=== PATIENT | male | born 1955 | race Caucasian/White ===

== ENCOUNTER 2016-07-24 14:31 | Inpatient (IN) ==
[2016-07-24 15:25] VITALS: BMI 23.3
[2016-07-24] MEDS ORDERED: MORPHINE 2 MG/ML SYRINGE IVP PRN (16:09)
[2016-07-24] MEDS ORDERED: ZOFRAN 4 MG/2 ML IVP PRN (16:11)
[2016-07-24 16:23] LABS: BASOPHILS % (AUTO) 0.2 % (0.0-3.0); EOSINOPHILS # (AUTO) 0.2 K/ul (0.0-0.7); EOSINOPHILS % (AUTO) 1.3 % (0.0-7.0); HEMATOCRIT 43.6 % (42.0-52.0); IMMATURE GRANULOCYTE % (AUTO) 0.3 % (0.0-5.0); LYMPHOCYTES % (AUTO) 15.6 (10.0-50.0); MEAN CORPUSCULAR HEMOGLOBIN 31.6 pg (27.0-31.0); MEAN CORPUSCULAR HGB CONC 34.4 (31.8-35.4); MONOCYTES # (AUTO) 1.2 K/uL (0.4-2.0); MONOCYTES % (AUTO) 9.2 (0-10); NEUTROPHILS # (AUTO) 9.2 K/ul (2.0-6.9); NEUTROPHILS % (AUTO) 73.4; PLATELET COUNT 242 10^3/uL (140-440); RED BLOOD COUNT 4.74 10^6/ul (4.70-6.10); WHITE BLOOD COUNT 12.54 K/ul (4.2-10.2)
[2016-07-24] MEDS ORDERED: LEVAQUIN 500 MG in PREMIX 100 ML D5W 1 BAG IV SCH (16:30)
[2016-07-24 16:38] LABS: BILIRUBIN,URINE Negative (NEGATIVE); KETONES,URINE Negative (NEGATIVE); LEUKOCYTE ESTERASE ,URINE Negative (NEGATIVE); NITRITE,URINE Negative (NEGATIVE); PH,URINE 5.5 (5-9); PROTEIN,URINE Negative (NEGATIVE); URINE, BLOOD 2+ (NEGATIVE)
[2016-07-24 16:40] LABS: ADD URINE MICROSCOPIC YES
[2016-07-24 16:45] LABS: ALBUMIN 3.3 g/dL (3.4-5.0); ALBUMIN/GLOBULIN RATIO 0.89; ANION GAP 14.1; BILIRUBIN,TOTAL 0.29 mg/dL (0.00-1.20); BUN/CREATININE RATIO 13.33; CALCIUM 8.8 mg/dL (8.2-10.2); CREATININE 1.05 mg/dL (0.60-1.10); POTASSIUM 4.1 mmol/L (3.5-5.1)
--- NOTE | 2016-07-24 16:50 | CT ---
EXAM: CT abdomen pelvis without contrast HISTORY: Lower abdominal pain for 4 days COMPARISON: None TECHNIQUE: Serial axial images of the abdomen pelvis were performed from the lung bases through the inferior pelvis without contrast. These were viewed in multiple planes. FINDINGS: The lung bases are clear. Evaluation is limited due to lack of contrast. The liver is unremarkable. The gallbladder is contr acted. The adrenal glands demonstrate a 2.5 x 3.2 cm low attenuation lesion in the left adrenal gla nd with Hounsfield units of negative five consistent with an adenoma. The right kidney and left kid mayur are unremarkable without hydronephrosis, hydroureter or stone. The spleen is unremarkable. The pancreas is normal. The stomach is normal. Small bowel in the abdomen pelvis is normal. The colon demonstrates thickening and inflammatory str anding of the sigmoid colon with multiple scattered diverticuli. There is no focal fluid collection or free air identified. The appendix is normal. Urinary bladder is partially distended. The pros gilliland demonstrates central calcifications. The osseous structures demonstrate multilevel degenerativ e disease of the spine with mild rightward curvature of the lumbar spine. IMPRESSION: 1. Sigmoid diverticulitis with no evidence of abscess or free air. 2. Left adrenal adenoma with measurements of 2.5 x 3.2 cm. 3. Degenerative disease of the spine with mild rightward curvature.
[2016-07-24] MEDS: D5%-NS-KCL 20 MEQ/L IV SOL 1,000 ML IV SCH (17:08)
[2016-07-24] MEDS: FLAGYL 500 MG/100 ML 500 MG in PREMIX 100 ML NS 1 BAG IV SCH ×2 (17:08→22:25)
[2016-07-24] MEDS: PRAVACHOL PO SCH (22:25)
[2016-07-24] MEDS: ZOSYN 3.375 GM 3.375 GM in SODIUM CHLORIDE 100 ML IV SCH (23:29)
[2016-07-25] MEDS: D5%-NS-KCL 20 MEQ/L IV SOL 1,000 ML IV SCH ×2 (05:12→19:13)
[2016-07-25] MEDS: FLAGYL 500 MG/100 ML 500 MG in PREMIX 100 ML NS 1 BAG IV SCH ×3 (05:14→21:05)
[2016-07-25] MEDS: ZOSYN 3.375 GM 3.375 GM in SODIUM CHLORIDE 100 ML IV SCH ×4 (06:26→23:25)
[2016-07-25 07:33] LABS: BASOPHILS % (AUTO) 0.3 % (0.0-3.0); EOSINOPHILS # (AUTO) 0.2 K/ul (0.0-0.7); EOSINOPHILS % (AUTO) 1.8 % (0.0-7.0); HEMATOCRIT 39.8 % (42.0-52.0); HEMOGLOBIN 13.8 g/dl (14.0-18.0); IMMATURE GRANULOCYTE % (AUTO) 0.3 % (0.0-5.0); LYMPHOCYTES % (AUTO) 20.1 (10.0-50.0); MEAN CORPUSCULAR HEMOGLOBIN 31.9 pg (27.0-31.0); MEAN CORPUSCULAR HGB CONC 34.7 (31.8-35.4); MEAN CORPUSCULAR VOLUME 92.1 fl (80.0-94.0); MONOCYTES # (AUTO) 1.1 K/uL (0.4-2.0); MONOCYTES % (AUTO) 11.3 (0-10); NEUTROPHILS # (AUTO) 6.5 K/ul (2.0-6.9); NEUTROPHILS % (AUTO) 66.2; PLATELET COUNT 202 10^3/uL (140-440); RED BLOOD COUNT 4.32 10^6/ul (4.70-6.10); WHITE BLOOD COUNT 9.87 K/ul (4.2-10.2)
[2016-07-25 07:58] LABS: ALBUMIN 2.8 g/dL (3.4-5.0); ALBUMIN/GLOBULIN RATIO 0.85; ANION GAP 10.8; BILIRUBIN,TOTAL 0.74 mg/dL (0.00-1.20); CALCIUM 8.4 mg/dL (8.2-10.2); CREATININE 0.8 mg/dL (0.60-1.10); POTASSIUM 3.8 mmol/L (3.5-5.1); TOTAL PROTEIN 6.1 g/dL (5.8-8.1)
[2016-07-25] MEDS ORDERED: ASPIRIN EC PO SCH ×2 (08:00→21:00)
[2016-07-25] MEDS ORDERED: TOPROL XL PO SCH ×2 (09:00→21:00)
[2016-07-25] MEDS ORDERED: PRASUGREL HCL 5 MG PO SCH ×2 (09:00→21:00)
[2016-07-25] MEDS: SODIUM CHLORIDE 1,000 ML IV SCH (18:57)
[2016-07-25] MEDS: PRAVACHOL PO SCH (21:04)
[2016-07-26] MEDS: FLAGYL 500 MG/100 ML 500 MG in PREMIX 100 ML NS 1 BAG IV SCH ×2 (04:23→13:35)
[2016-07-26] MEDS: ZOSYN 3.375 GM 3.375 GM in SODIUM CHLORIDE 100 ML IV SCH ×3 (05:53→17:51)
[2016-07-26 18:17] VITALS: BP 142/86; TEMP 97.8
[2016-07-26] MEDS ORDERED: PNEUMOVAX 23 ONE (18:45)
[2016-07-26] MEDS ORDERED: FLUARIX QUAD 2016-2017 SYRINGE IM ONE (18:45)
[2016-07-26] MEDS: SODIUM CHLORIDE 1,000 ML IV SCH (19:13)
--- NOTE | 2016-08-27 12:42 | SSS ---
DATE OF SERVICE: 07/24/16 - ADMITTED 07/26/16 DISCHARGED PRINCIPAL DIAGNOSIS: 1. ACUTE DIVERTICULITIS 2. HYPERTENSION 3. HYPERLIPIDEMIA 4. CORONARY ARTERY DISEASE DISCUSSION: This is a 60-year-old male who presented to my office for evaluation of lower abdominal pain. For several days he has had lower abdominal discomfort associated with loose stool. There had been no blood in the stool. He states his colonoscopy has been up to date and he presents for further evaluation. PAST MEDICAL HISTORY: MEDICATIONS: 1. 81 mg aspirin 2. Pravachol 3. Effient 4. Toprol ALLERGIES: NKDA PAST MEDICAL HISTORY: Includes history of coronary artery disease; history of hyperlipidemia; hypertension. PAST SURGICAL HISTORY: Unremarkable. SOCIAL HISTORY: He is . He is a previous smoker. Uses alcohol socially. No ilicit drug use is noted. FAMILY HISTORY: Reviewed and thought not to be pertinent to discussion. REVIEW OF SYSTEMS: No headaches, visual changes, tinnitus, chest pain, shortness of breath, hemoptysis. Denies any blood in the stool, had lower abdominal cramping. No urinary symptoms or seizures. PHYSICAL EXAMINATION: VITAL SIGNS: Temperature 100, pulse 80, respirations 18 and blood pressure 134/ 68. HEENT: Pupils are round. NECK: Supple. CHEST: Clear. CARDIOVASCULAR: Regular rate and rhythm. ABDOMEN: Soft. There is no tenderness in right lower quadrant. No rebound, no guarding. EXTREMITIES: Distal extremities without cyanosis or edema. LABS AND STUDIES: Laboratory revealed a white count of 12,000, chemistries unremarkable. Urinalysis found to be clear. CT scan did reveal evidence of acute diverticulitis. CLINICAL COURSE: The patient was admitted, started on IV fluids, antibiotics. Gradually his pain seemed to improve. We advanced his diet. At time of discharge, he was tolerating regular diet without fever, chills, nausea and vomiting. At this point we thought he was stable for discharge. He was discharged with antibiotics, Cipro and Flagyl. We are going to arrange followup with his GI doctor, Dr. Diaz for outpatient colonoscopy. Please see orders. MTDD
== END 2016-07-26 18:35 | disposition home or self-care (01) | DRG 392 ==
LOC: MEDSURG A 14:31
PROVIDERS: ADMIT Family Medicine; ATTEND Family Medicine
DX: K57.32 Diverticulitis of large intestine without perforation or abscess without bleeding (principal); I10 Essential (primary) hypertension; E78.5 Hyperlipidemia, unspecified; I25.10 Atherosclerotic heart disease of native coronary artery without angina pectoris; Z87.891 Personal history of nicotine dependence; Z79.899 Other long term (current) drug therapy
CPT/HCPCS: 36415; 80053; 81001; 82150; 83690; 85025

== ENCOUNTER 2016-10-13 06:31 | Day surgery (SDC) ==
[2016-10-13] MEDS ORDERED: LIDOCAINE 1% 20 ML MDV ID ONE (07:09)
[2016-10-13] MEDS ORDERED: LIDOCAINE 1% 20 ML MDV ONE (07:09)
[2016-10-13] MEDS ORDERED: VERSED ONE (08:25)
[2016-10-13] MEDS ORDERED: DIPRIVAN 20 ML VIAL IVP ONE (08:25)
[2016-10-13 09:25] VITALS: BP 131/80; TEMP 97.6
--- NOTE | 2016-10-13 14:45 | OP ---
INDICATIONS FOR PROCEDURE: 60-year-old gentleman presents for colonoscopy exam. He has a family history of colon cancer involving his mother. He also had an episode of diverticulitis this past July and that has resolved. MEDICATIONS: SEE ANESTHESIA NOTES. PROCEDURE: COLONOSCOPY, SNARE POLYPECTOMY. REPORT: The risks, benefits, alternatives and limitations were discussed in detail with the patient. Informed consent was obtained. After adequate sedation was achieved, a digital rectal exam revealed good tone, no masses. The colonoscope was introduced into the rectum and advanced under direct visual guidance to the cecum. The cecum was identified by the appendiceal orifice and IC valve. I then slowly withdrew the scope in a circumferential manner examining the mucosa quite carefully. I was able to retroflex the scope in the right colon and left colon to increase visualization. The colonic mucosa was unremarkable except for mild amount of small mouth diverticula scattered throughout the sigmoid colon. In the rectum, there is a raised 6 mm polyp that I removed by snare technique. No other abnormalities were noted including on retroflex view of the anal canal. The prep was good. The withdrawal time was 7 minutes and 6 seconds. The patient tolerated the procedure well with stable vital signs and pulse oximetry throughout. IMPRESSION: 1. DIVERTICULOSIS. 2. RECTAL POLYP REMOVED. RECOMMENDATIONS: 1. High fiber diet. 2. Office visit as needed. 3. Await pathology results. If everything is benign without alarm features, I recommend repeat surveillance examination again in 5 years, sooner if there are any signs or symptoms to indicate otherwise. CC: DR. DELANEY GUTIÉRREZ
== END 2016-10-13 09:34 | disposition home or self-care (01) ==
LOC: SURG 06:31
PROVIDERS: ATTEND Internal Medicine Gastroenterology
DX: Z87.19 Personal history of other diseases of the digestive system (principal); D12.7 Benign neoplasm of rectosigmoid junction; K57.30 Diverticulosis of large intestine without perforation or abscess without bleeding; Z80.0 Family history of malignant neoplasm of digestive organs

== ENCOUNTER 2016-10-14 23:22 | Inpatient (IN) ==
[2016-10-14] MEDS ORDERED: DUONEB NEB STA (23:27)
[2016-10-14] MEDS ORDERED: SOLU-MEDROL 125 MG IVP STA (23:27)
--- NOTE | 2016-10-14 23:31 | ED.PDOC ---
General ED Provider: Dr. STAN TOMLINSON Chief Complaint: Shortness of Air Stated Complaint: coughing, shortness of breath, took breathing treament at home not helped. Time Seen by Physician: 23:29 Primary Care Provider: DELANEY QUINTEROS Nursing and Triage Documentation Reviewed and Agree: Yes Respiratory Complaint Exam - Shortness of Air Complaint/Exam Symptoms Are: Still present Timing: Constant Initial Severity: Moderate Current Severity: Moderate Character: Reports: Dyspnea at rest Aggravating: Reports: URI Alleviating: Reports: None Associated Signs and Symptoms: Reports: Cough, Wheezing. Denies: Chest pain with cough, Chest pain, Fever, Chills, Diaphoresis, Nasal congestion, Dizziness , Calf pain, Calf swelling, Edema, Rapid breathing, Labored breathing, Decreased intake Related History: Reports: Similar episode History of Healthcare-Acquired Pneumonia: No Pulmonary Embolism Risk Factors: Reports: None Cardiac Risk Factors: Reports: CAD, Smoking Pseudomonas Risk Factors: Reports: None Tuberculosis Risk Factors: Reports: None Home Oxygen Use: No Recent Stress Test: No Tracheal Deviation: No Subcutaneous Emphysema: No Accessory Muscle Use: Yes Retractions: Nasal Flaring, Supraclavicular Diminished Breath Sounds: Yes Prolonged Expiratory Phase: Yes Unable to Speak Full Sentences: Yes Fatigue: No Leg Swelling: No Differential Diagnoses: CHF, Pulmonary Edema, COPD Exacerbation, ME, Pneumonia Review of Systems - Review Of Systems Constitutional: Reports: Malaise, Weakness Eyes: Reports: No symptoms Ears, Nose, Mouth, Throat: Reports: No symptoms Respiratory: Reports: Cough, Short of air Cardiac: Reports: No symptoms GI: Reports: No symptoms : Reports: No symptoms Musculoskeletal: Reports: No symptoms Skin: Reports: No symptoms Neurological: Reports: No symptoms Endocrine: Reports: No symptoms Hematologic/Lymphatic: Reports: No symptoms All Other Systems: Reviewed and Negative Past Medical History - Past Medical History Previously Healthy: Yes Endocrine: Reports: None Cardiovascular: Reports: CAD, ME, Hypertension Respiratory: Reports: None Hematological: Reports: None Gastrointestinal: Reports: None Genitourinary: Reports: None Neuro/Psych: Reports: None Musculoskeletal: Reports: None Cancer: Reports: None - Surgical History General Surgical History: Reports: Unknown - Family History Family History: Reports: Unknown - Social History Smoking Status: Current every day smoker, Heavy tobacco smoker Smoking Cessation Counseling Time: > 10 min Hx Substance Use: No Alcohol Screening: Occasionally Lives: With family Physical Exam - Physical Exam Appearance: Ill-appearing, Thin Eyes: MCKAY, EOMI, Conjunctiva clear ENT: Ears normal, Nose normal, Oropharynx normal Respiratory: Breath sounds diminished, Crackles, Wheezes Cardiovascular: RRR, Pulses normal, No rub, No murmur GI/: Soft, Nontender, No masses, Bowel sounds normal, No Organomegaly Musculoskeletal: Normal strength, ROM intact, No edema, No calf tenderness Skin: Warm, Dry, Normal color Neurological: Sensation intact, Motor intact, Reflexes intact, Cranial nerves intact, Alert, Oriented Psychiatric: Affect appropriate, Mood appropriate Interpretation - Radiology Interpretation Radiology Interpretation By: Radiologist Radiology Results: Negative Exam Interpreted: CT Scan Critical Care Note - Critical Care Note Total Time (mins): 0 Course - Course Hematology/Chemistry: 10/14/16 23:30 10/14/16 23:30 Orders, Labs, Meds: Lab Review 10/14/16 10/14/16 23:30 23:44 WBC 10.92 H RBC 5.15 Hgb 16.6 Hct 47.3 MCV 91.8 MCH 32.2 H MCHC 35.1 RDW Coeff of Carlos 13.2 Plt Count 316 Immature Gran % (Auto) 0.3 Neut % (Auto) 46.2 Lymph % (Auto) 33.4 Love % (Auto) 9.2 Eos % (Auto) 10.4 H Baso % (Auto) 0.5 Immature Gran # (Auto) 0.0 Neut # 5.0 Lymph # 3.7 H Love # 1.0 Eos # 1.1 H Baso # 0.1 D-Dimer (Manual) 601.78 Puncture Site Lrad O2 Saturation 83.0 L ABG pH 7.370 ABG pCO2 36.1 ABG pO2 49.0 L* ABG HCO3 20.8 L ABG Total CO2 22 ABG Base Excess -4 L Fady Test + FiO2 % 21.0 Sodium 140 Potassium 3.4 L Chloride 105 Carbon Dioxide 23 Anion Gap 15.4 BUN 9 Creatinine 0.85 Estimated GFR (MDRD) 92.00 BUN/Creatinine Ratio 10.58 Glucose 97 Calcium 9.3 Total Bilirubin 0.50 AST 16 ALT 14 Alkaline Phosphatase 77 Total Creatine Kinase 138 CK-MB (CK-2) 2.5 CK-MB (CK-2) % 1.06711 Troponin I < 0.0100 B-Natriuretic Peptide 33 Total Protein 7.8 Albumin 4.0 Globulin 3.8 Albumin/Globulin Ratio 1.05 Orders Category Date Time Status ABG DRAW REQUEST Stat CARDIO 10/14/16 23:44 Completed EKG-(ED ONLY) Stat CARDIO 10/14/16 23:28 Completed NEBULIZER TREATMENT Stat CARDIO 10/14/16 23:27 Completed ED IV/MEDIPORT/POWERPORT .ONCE EMERGENCY 10/14/16 23:27 Active ABG Stat LAB 10/14/16 23:44 Completed B-TYPE NATRIURETIC PEPTIDE Stat LAB 10/14/16 23:30 Completed CBC W/ AUTO DIFF Stat LAB 10/14/16 23:30 Completed COMPREHENSIVE METABOLIC PANEL Stat LAB 10/14/16 23:30 Completed CREATINE KINASE Stat LAB 10/14/16 23:30 Completed D-DIMER Stat LAB 10/14/16 23:30 Completed LACTIC ACID Stat LAB 10/14/16 00:10 Received PROCALCITONIN Stat LAB 10/14/16 23:30 Received SPUTUM CULTURE Stat LAB 10/14/16 23:43 Uncollected TROPONIN I Stat LAB 10/14/16 23:30 Completed 0.9 % Sodium Chloride [Saline Flush] MEDS 10/14/16 23:27 Ordered 1 syr IVF PRN PRN Ipratropium/Albuterol Neb [Duoneb] MEDS 10/14/16 23:27 Discontinued 1 vial NEB ONCE STA Methylprednisolone Sod Succ/Pf [Solu-Medrol 125 mg] MEDS 10/14/16 23:27 Discontinued 80 mg IVP ONCE STA CT CHEST W/O CONTRAST Stat RADS 10/14/16 23:27 Completed Medications Generic Name Dose Route Start Last Admin Trade Name Freq PRN Reason Stop Dose Admin Sodium Chloride 1 syr 10/14/16 23:27 10/14/16 23:38 Saline Flush IVF 1 syr PRN PRN Administration To flush IV Discontinued Medications Generic Name Dose Route Start Last Admin Trade Name Freq PRN Reason Stop Dose Admin Albuterol/Ipratropium 1 vial 10/14/16 23:27 10/14/16 23:49 Duoneb NEB 10/14/16 23:28 1 vial ONCE STA Administration Methylprednisolone Sodium Succinate 80 mg 10/14/16 23:27 10/14/16 23:36 Solu-Medrol 125 Mg IVP 10/14/16 23:28 80 mg ONCE STA Administration Vital Signs: Temp Pulse Resp BP Pulse Ox 10/14/16 23:23 97.9 F 172 H 24 160/98 H 99 Departure - Departure Time of Disposition: 00:25 Disposition: ADMITTED INPATIENT Discharge Problem: COPD exacerbation Instructions: COPD (Chronic Obstructive Pulmonary Disease) (ED) Condition: Stable Pt referred to PMD for follow-up: No Allergies/Adverse Reactions: Allergies No Known Allergies Allergy (Verified 10/14/16 23:31) Home Medications: Ambulatory Orders Aspirin [Aspirin EC] 81 mg PO DAILYWM 07/02/15 Prasugrel HCl [Effient] 5 mg PO DAILY 07/02/15 Pravastatin Sodium [Pravachol] 40 mg PO DAILY 07/02/15 Metoprolol Succinate [Toprol Xl] 25 mg PO DAILY 07/24/16 Albuterol Sulfate [Proair Hfa] 2 puff IH Q4H PRN 10/13/16 Disposition Discussed With: Patient, Family
[2016-10-14 23:37] LABS: BASOPHILS # (AUTO) 0.1 K/uL (0-0.2); BASOPHILS % (AUTO) 0.5 % (0.0-3.0); EOSINOPHILS # (AUTO) 1.1 K/ul (0.0-0.7); EOSINOPHILS % (AUTO) 10.4 % (0.0-7.0); HEMATOCRIT 47.3 % (42.0-52.0); HEMOGLOBIN 16.6 g/dl (14.0-18.0); IMMATURE GRANULOCYTE % (AUTO) 0.3 % (0.0-5.0); LYMPHOCYTES # (AUTO) 3.7 K/uL (0.60-3.4); LYMPHOCYTES % (AUTO) 33.4 (10.0-50.0); MEAN CORPUSCULAR HEMOGLOBIN 32.2 pg (27.0-31.0); MEAN CORPUSCULAR HGB CONC 35.1 (31.8-35.4); MEAN CORPUSCULAR VOLUME 91.8 fl (80.0-94.0); MONOCYTES % (AUTO) 9.2 (0-10); NEUTROPHILS % (AUTO) 46.2; PLATELET COUNT 316 10^3/uL (140-440); RED BLOOD COUNT 5.15 10^6/ul (4.70-6.10); WHITE BLOOD COUNT 10.92 K/ul (4.2-10.2)
[2016-10-14 23:46] LABS: ABG PCO2 36.1 mmHg (35-45)
[2016-10-14 23:47] LABS: ABG BASE EXCESS -4 (-2.0-2.0); ABG HCO3 20.8 (22.0-26.0); ABG TCO2 22 (22.0-28.0)
--- NOTE | 2016-10-15 00:11 | CT ---
Exam: CT of the chest without contrast History: Shortness of breath Technique: [address] of the chest FINDINGS: Lung windows show moderate emphysematous change. No infiltrative opacities, suspicious n odules or masses. The liver, gallbladder, pancreas, spleen and right adrenal gland appear normal. There is a 2.9 x 2.4 cm left adrenal adenoma. No acute findings of the upper abdomen. Impression: 1. Moderate to severe emphysematous change. No acute findings of the chest.
[2016-10-15 00:16] LABS: ALANINE AMINOTRANSFERASE 14 U/L (12-78); ALBUMIN/GLOBULIN RATIO 1.05; ALKALINE PHOSPHATASE 77 U/L (56-119); ANION GAP 15.4; ASPARTATE AMINO TRANSFERASE 16 U/L (15-37); BLOOD UREA NITROGEN 9 mg/dL (7-18); BUN/CREATININE RATIO 10.58; CALCIUM 9.3 mg/dL (8.2-10.2); CARBON DIOXIDE 23 mmol/L (23-31); CHLORIDE 105 mmol/L (98-107); CREATINE KINASE 138 U/L; CREATININE 0.85 mg/dL (0.60-1.10); GLUCOSE 97 mg/dL (82-115); POTASSIUM 3.4 mmol/L (3.5-5.1); SODIUM 140 mmol/L (136-145); TOTAL PROTEIN 7.8 g/dL (5.8-8.1)
[2016-10-15 00:18] LABS: CREATINE KINASE MB 2.5 ng/ml (0.0-3.6)
[2016-10-15] MEDS ORDERED: ROCEPHIN 1 GM in SODIUM CHLORIDE 50 ML IV SCH (00:30)
[2016-10-15] MEDS ORDERED: K-DUR PO STA (00:30)
[2016-10-15] MEDS: DUONEB NEB SCH ×6 (01:05→22:40)
[2016-10-15] MEDS: SODIUM CHLORIDE 1,000 ML IV SCH ×2 (01:10→14:30)
[2016-10-15 01:13] VITALS: BMI 22.2
[2016-10-15] MEDS ORDERED: ROCEPHIN ONE (02:04)
[2016-10-15] MEDS: SOLU-MEDROL 125 MG IVP SCH ×2 (05:09→13:15)
[2016-10-15 05:42] LABS: BASOPHILS % (AUTO) 0.2 % (0.0-3.0); EOSINOPHILS # (AUTO) 0.1 K/ul (0.0-0.7); EOSINOPHILS % (AUTO) 0.6 % (0.0-7.0); HEMATOCRIT 43.7 % (42.0-52.0); IMMATURE GRANULOCYTE % (AUTO) 0.5 % (0.0-5.0); LYMPHOCYTES # (AUTO) 0.8 K/uL (0.60-3.4); LYMPHOCYTES % (AUTO) 9.7 (10.0-50.0); MEAN CORPUSCULAR HEMOGLOBIN 31.4 pg (27.0-31.0); MEAN CORPUSCULAR HGB CONC 34.3 (31.8-35.4); MEAN CORPUSCULAR VOLUME 91.4 fl (80.0-94.0); MONOCYTES # (AUTO) 0.1 K/uL (0.4-2.0); MONOCYTES % (AUTO) 0.9 (0-10); NEUTROPHILS # (AUTO) 7.6 K/ul (2.0-6.9); NEUTROPHILS % (AUTO) 88.1; PLATELET COUNT 272 10^3/uL (140-440); RED BLOOD COUNT 4.78 10^6/ul (4.70-6.10); WHITE BLOOD COUNT 8.67 K/ul (4.2-10.2)
[2016-10-15 06:17] LABS: ALBUMIN 3.4 g/dL (3.4-5.0); ALBUMIN/GLOBULIN RATIO 0.94; ANION GAP 13.2; BILIRUBIN,TOTAL 0.37 mg/dL (0.00-1.20); BUN/CREATININE RATIO 9.33; CALCIUM 8.6 mg/dL (8.2-10.2); CREATININE 0.75 mg/dL (0.60-1.10); POTASSIUM 4.2 mmol/L (3.5-5.1)
[2016-10-15 06:27] LABS: TROPONIN I 0.019 ng/ml (0.0000-0.4000)
[2016-10-15] MEDS: LOVENOX SUBCUT SCH (08:19)
[2016-10-15] MEDS: ASPIRIN EC PO SCH (08:19)
[2016-10-15] MEDS: TOPROL XL PO SCH (08:19)
[2016-10-15] MEDS: PRAVACHOL PO SCH ×2 (09:20→20:58)
[2016-10-15] MEDS: PRASUGREL HCL 5 MG PO SCH (09:21)
[2016-10-15 15:40] LABS: TROPONIN I 0.013 ng/ml (0.0000-0.4000)
[2016-10-15] MEDS: SOLU-MEDROL 40 MG IVP SCH ×2 (17:52→21:21)
[2016-10-15] MEDS: ROCEPHIN 1 GM in SODIUM CHLORIDE 50 ML IV SCH (20:57)
[2016-10-16] MEDS: DUONEB NEB SCH ×5 (01:48→19:02)
[2016-10-16] MEDS: SOLU-MEDROL 40 MG IVP SCH ×3 (05:06→21:02)
[2016-10-16 05:17] LABS: BASOPHILS % (AUTO) 0.1 % (0.0-3.0); HEMATOCRIT 40.3 % (42.0-52.0); HEMOGLOBIN 13.9 g/dl (14.0-18.0); IMMATURE GRANULOCYTE % (AUTO) 0.5 % (0.0-5.0); LYMPHOCYTES # (AUTO) 0.9 K/uL (0.60-3.4); LYMPHOCYTES % (AUTO) 5.7 (10.0-50.0); MEAN CORPUSCULAR HEMOGLOBIN 31.7 pg (27.0-31.0); MEAN CORPUSCULAR HGB CONC 34.5 (31.8-35.4); MEAN CORPUSCULAR VOLUME 91.8 fl (80.0-94.0); MONOCYTES # (AUTO) 0.8 K/uL (0.4-2.0); MONOCYTES % (AUTO) 4.7 (0-10); NEUTROPHILS # (AUTO) 14.7 K/ul (2.0-6.9); PLATELET COUNT 279 10^3/uL (140-440); RED BLOOD COUNT 4.39 10^6/ul (4.70-6.10); WHITE BLOOD COUNT 16.51 K/ul (4.2-10.2)
[2016-10-16 05:36] LABS: ALBUMIN 3.2 g/dL (3.4-5.0); ANION GAP 12.1; BILIRUBIN,TOTAL 0.25 mg/dL (0.00-1.20); BUN/CREATININE RATIO 13.33; CALCIUM 8.8 mg/dL (8.2-10.2); CREATININE 0.75 mg/dL (0.60-1.10); POTASSIUM 4.1 mmol/L (3.5-5.1); TOTAL PROTEIN 6.4 g/dL (5.8-8.1)
[2016-10-16] MEDS: TOPROL XL PO SCH (08:14)
[2016-10-16] MEDS: PRASUGREL HCL 5 MG PO SCH (08:14)
[2016-10-16] MEDS: LOVENOX SUBCUT SCH (08:14)
[2016-10-16] MEDS: ASPIRIN EC PO SCH (08:14)
[2016-10-16] MEDS: PRAVACHOL PO SCH (20:13)
[2016-10-16] MEDS: ROCEPHIN 1 GM in SODIUM CHLORIDE 50 ML IV SCH (20:14)
[2016-10-16] MEDS: SYMBICORT 160-4.5 MCG INHALER IH SCH ×2 (22:16)
[2016-10-17 05:27] VITALS: BP 151/93; TEMP 97.4
[2016-10-17] MEDS: SOLU-MEDROL 40 MG IVP SCH (05:30)
[2016-10-17] MEDS: DUONEB NEB SCH (05:45)
--- NOTE | 2016-12-29 14:36 | HP ---
CHIEF COMPLAINT: "I can't breathe." DISCUSSION: This is a 60-year-old gentleman with a history of COPD who presented to the Emergency Department and was evaluated by Dr. Mg. He had had episodes of cough, wheezing and shortness of breath. He had neb treatments that were not helpful. He is a heavy smoker and has seen pulmonary before. A CT of the chest was negative for acute disease. He was given steroids and Duonebs in the Emergency Room with partial improvement. However, because of his persistent cough and wheezing, he was admitted to my services for treatment of possible exacerbation of COPD. PAST MEDICAL HISTORY: MEDICATIONS: 1. Aspirin 2. Effient 3. Pravachol 4. Toprol 5. ProAir inhaler ALLERGIES: NKDA PAST MEDICAL HISTORY: Significant for: 1. History of coronary artery disease 2. History of GA 3. Hypertension 4. History of COPD PAST SURGICAL HISTORY: Unremarkable. FAMILY HISTORY: Reviewed and thought not to be pertinent to discussion. SOCIAL HISTORY: He is a one pack per day smoker. He uses alcohol socially. No ilicit drug use is noted. REVIEW OF SYSTEMS: No headaches, visual changes, tinnitus or chest pain. No hemoptysis. No abdominal pain, blood in the stool, urinary symptoms or seizures. PHYSICAL EXAMINATION: V/S: Temperature 97.9, BP 160/98, pulse 93, respiratory rate 24. HEENT: Pupils are round. NECK: Supple. CHEST: Decreased breath sounds, faint wheeze. CARDIOVASCULAR: Regular rate and rhythm. ABDOMEN: Soft, nontender. EXTREMITIES: Distal extremities without cyanosis or edema. ASSESSMENT: 1. EXACERBATION OF COPD 2. HYPERTENSION 3. CORONARY ARTERY DISEASE 4. HYPOXEMIA PLAN: 1. Admission 2. Steroids 3. Bronchodilators 4. Please see orders MTDD
--- NOTE | 2016-12-29 14:40 | DS ---
PRINCIPAL DIAGNOSIS: 1. COPD EXACERBATION DISCUSSION: This is a 60-year-old gentleman with a history of COPD who presented to the Emergency Department and was evaluated by Dr. Mg. He had had episodes of cough, wheezing and shortness of breath. He had neb treatments that were not helpful. He is a heavy smoker and has seen pulmonary before. A CT of the chest was negative for acute disease. He was given steroids and Duonebs in the Emergency Room with partial improvement. However, because of his persistent cough and wheezing, he was admitted to my services for treatment of possible exacerbation of COPD. CLINICAL COURSE: The patient did very well with steroids and bronchodilators. His lung sounds improved. We began to wean his steroids. His oxygenation seemed to improve and at time of discharge, he was alert and oriented. He does have oxygen at home and will continue that at home. PLAN: 1. Discharge medications: a) Omnicef 300 mg b.i.d. for 5 days b) Tapering dose of Prednisone. c) He will go home with Symbicort as well as Albuterol inhaler. 2. 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 Drake. MARLA
== END 2016-10-17 10:25 | disposition home or self-care (01) | DRG 192 ==
LOC: ED 23:22 → SCU 10-15 00:34 → MEDSURG A 10-15 16:07
PROVIDERS: ADMIT Family Medicine; ATTEND Family Medicine
DX: J44.1 Chronic obstructive pulmonary disease with (acute) exacerbation (principal); R06.02 Shortness of breath; I10 Essential (primary) hypertension; I25.2 Old myocardial infarction; F17.200 Nicotine dependence, unspecified, uncomplicated; Z79.899 Other long term (current) drug therapy
CPT/HCPCS: 36415; 80053; 82550; 82553; 82803; 83605; 83880; 84145; 84484; 85025; 85379; 87070; 87081; 93005; 93010; 94640; 94761; 96374; 99284

== ENCOUNTER 2017-05-07 15:48 | Outpatient (CLI) ==
--- NOTE | 2017-05-07 16:13 | DI ---
EXAM: Four views of the left fourth digit HISTORY: Trauma to the left ring finger. COMPARISON: None FINDINGS: There is a comminuted mildly displaced fracture of the distal aspect of the fourth digit. F racture does not extend to the joint space. There is soft tissue swelling. No additional osseous ab normality is identified. IMPRESSION: Comminuted mildly displaced fracture of the distal aspect of the distal phalanx of the f ourth digit with soft tissue swelling.
== END 2017-05-07 15:49 | disposition home or self-care (01) ==
LOC: RAD 15:48
PROVIDERS: ATTEND Family Medicine
DX: S60.142A Contusion of left ring finger with damage to nail, initial encounter (principal)

== ENCOUNTER 2017-07-15 08:20 | Outpatient (CLI) ==
--- NOTE | 2017-07-15 09:22 | US ---
EXAM: ULTRASOUND AORTA HISTORY: Pulsatile aorta FINDINGS: Ultrasound aorta. Real time flanagan-scale ultrasound, color Doppler imaging and spectral ely lysis performed. The AP and transverse measurements respectively, in centimeters are as follows: Proximal: 2.1 x 2.0 Mid: 1.6 x 2.0 Distal: 1.9 x 2.1 Right iliac: 1.0 x 0.8 Left iliac: 1.0 x 0.9 IMPRESSION: No sonographic evidence of aneurysmal caliber of the abdominal aorta appear
== END 2017-07-15 08:21 | disposition home or self-care (01) ==
LOC: RAD 08:20
PROVIDERS: ATTEND Physician Assistant
DX: R09.89 Other specified symptoms and signs involving the circulatory and respiratory systems (principal)
CPT/HCPCS: 76775

== ENCOUNTER 2017-10-03 08:58 | Emergency (ER) | payer OTHER ==
[2017-10-03 09:02] VITALS: BP 168/75; TEMP 98.5; BMI 22.3
[2017-10-03] MEDS ORDERED: SOLU-MEDROL 125 MG IVP STA (09:02)
[2017-10-03] MEDS ORDERED: DUONEB NEB STA (09:03)
[2017-10-03] MEDS ORDERED: XOPENEX 1.25 MG NEB STA (09:03)
[2017-10-03] MEDS ORDERED: ROCEPHIN 1 GM in SODIUM CHLORIDE 50 ML IV STA (09:03)
[2017-10-03] MEDS ORDERED: ROCEPHIN ONE (09:11)
--- NOTE | 2017-10-03 10:16 | ED.PDOC ---
General ED Provider: Dr. 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 Time Seen by Physician: 09:00 Mode of Arrival: Walk-In Information Source: Patient Exam Limitations: No limitations Primary Care Provider: DELANEY QUINTEROS Nursing and Triage Documentation Reviewed and Agree: Yes Reviewed sepsis parameters & appropriate labs ordered?: Yes System Inflammatory Response Syndrome: Not Applicable Sepsis Protocol: For patient's 13 years and over: Temp is 96.8 and below OR 101 and greater Pulse >90 BPM Resp >20/minute Acutely Altered Mental Status Are patient's symptoms suggestive of a new infection, such as: -Pneumonia -Skin, Soft Tissue -Endocarditis -UTI -Bone, Joint Infection -Implantable Device -Acute Abdominal Infection -Wound Infection -Meningitis -Blood Stream Catheter Infection -Unknown Respiratory Complaint Exam - Asthma Complaint/Exam Onset/Duration: 2 days Symptoms Are: Still present Initial Severity: Mild Current Severity: Moderate Character: Reports: Wheezing, Productive cough Alleviating: Reports: Inhalers Associated Signs and Symptoms: Reports: SOA, URI, Labored breathing. Denies: Fever, Chest pain, Edema, Calf pain, Sinus infection, Rapid breathing Related History: Reports: Similar episode Current Asthma Medication Usage: Yes Recent Antibiotics: No Respiratory Distress: Mild Accessory Muscle Use: No Retractions: Not Present Diminished Breath Sounds: No Prolonged Expiratory Phase: No Unable to Speak Full Sentences: Yes Fatigue Present: No Differential Diagnoses: Acute Asthma, Bronchitis Review of Systems - Review Of Systems Constitutional: Reports: No symptoms Eyes: Reports: No symptoms Ears, Nose, Mouth, Throat: Reports: No symptoms Respiratory: Reports: Cough, Wheezing Cardiac: Reports: No symptoms GI: Reports: No symptoms : Reports: No symptoms Musculoskeletal: Reports: No symptoms Skin: Reports: No symptoms Neurological: Reports: No symptoms Endocrine: Reports: No symptoms Hematologic/Lymphatic: Reports: No symptoms All Other Systems: Reviewed and Negative Past Medical History - Past Medical History Previously Healthy: Yes Endocrine: Reports: None Cardiovascular: Reports: CAD, ME, Hypertension Respiratory: Reports: None Hematological: Reports: None Gastrointestinal: Reports: None Genitourinary: Reports: None Neuro/Psych: Reports: None Musculoskeletal: Reports: None Cancer: Reports: None - Surgical History General Surgical History: Reports: Unknown - Family History Family History: Reports: Unknown - Social History Smoking Status: Current every day smoker, Heavy tobacco smoker Hx Substance Use: No Alcohol Screening: Occasionally Physical Exam - Physical Exam Appearance: Well-appearing, No pain distress, Well-nourished Eyes: MCKAY, EOMI, Conjunctiva clear ENT: Ears normal, Nose normal, Oropharynx normal Neck: Supple Respiratory: Rhonchi, Wheezes Cardiovascular: RRR, Pulses normal, No rub, No murmur GI/: Soft, Nontender, No masses, Bowel sounds normal, No Organomegaly Musculoskeletal: Normal strength Skin: Warm Neurological: Sensation intact Psychiatric: Affect appropriate, Mood appropriate Interpretation - Radiology Interpretation Radiology Interpretation By: ED Physician Radiology Results: Negative Exam Interpreted: CXR - EKG Interpretation Time of EKG #1: 10:15 Rate: Normal Rhythm: Sinus Ectopy: None [place]: [place] ST Segment: Normal Re-Evaluation - Re-Evaluation Time of Re-Evaluation: 10:15 Status: Improved Vital Signs Stable: Yes Appearance: NAD Lungs: Clear (0) Skin: Warm and Dry Neuro: Alert and Oriented X3 CV: RRR Additional Comments: oxygen sat 92% RA Critical Care Note - Critical Care Note Total Time (mins): 0 Course - Course Hematology/Chemistry: 10/03/17 09:10 10/03/17 09:10 Orders, Labs, Meds: Lab Review 10/03/17 10/03/17 10/03/17 09:01 09:10 09:10 WBC 19.32 H RBC 4.61 L Hgb 15.0 Hct 43.0 MCV 93.3 MCH 32.5 H MCHC 34.9 RDW Coeff of Carlos 13.4 Plt Count 309 Immature Gran % (Auto) 0.4 Neut % (Auto) 78.0 Lymph % (Auto) 10.0 [place] % (Auto) 8.1 Eos % (Auto) 3.2 Baso % (Auto) 0.3 Immature Gran # (Auto) 0.1 Neut # (Auto) 15.1 H Lymph # (Auto) 1.9 [place] # (Auto) 1.6 Eos # (Auto) 0.6 Baso # (Auto) 0.1 Puncture Site Rrad O2 Saturation 92.0 L ABG pH 7.426 ABG pCO2 30.4 L ABG pO2 61.0 L ABG HCO3 20.0 L ABG Total CO2 21 L ABG Base Excess -4 L Fady Test + FiO2 % 21.0 Sodium 138 Potassium 3.8 Chloride 104 Carbon Dioxide 23 Anion Gap 14.8 BUN 12 Creatinine 0.70 Estimated GFR (MDRD) 115.00 BUN/Creatinine Ratio 17.14 Glucose 124 H Calcium 8.2 Total Bilirubin 0.4 AST 12 L ALT 10 L Alkaline Phosphatase 87 Total Creatine Kinase 45 Troponin I < 0.0100 B-Natriuretic Peptide Total Protein 7.4 Albumin 3.6 Globulin 3.8 Albumin/Globulin Ratio 0.95 10/03/17 09:10 WBC RBC Hgb Hct MCV MCH MCHC RDW Coeff of [place] Plt Count Immature Gran % (Auto) Neut % (Auto) Lymph % (Auto) [place] % (Auto) Eos % (Auto) Baso % (Auto) Immature Gran # (Auto) Neut # (Auto) Lymph # (Auto) [place] # (Auto) Eos # (Auto) Baso # (Auto) Puncture Site O2 Saturation ABG pH ABG pCO2 ABG pO2 ABG HCO3 ABG Total CO2 ABG Base Excess Fady Test FiO2 % Sodium Potassium Chloride Carbon Dioxide Anion Gap BUN Creatinine Estimated GFR (MDRD) BUN/Creatinine Ratio Glucose Calcium Total Bilirubin AST ALT Alkaline Phosphatase Total Creatine Kinase Troponin I B-Natriuretic Peptide 39 Total Protein Albumin Globulin Albumin/Globulin Ratio Orders Category Date Time Status ABG DRAW REQUEST Stat CARDIO 10/03/17 09:02 Completed EKG-(ED ONLY) Stat CARDIO 10/03/17 09:02 Completed NEBULIZER TREATMENT Stat CARDIO 10/03/17 09:03 Completed IV [ED IV/MEDIPORT/POWERPORT] .ONCE EMERGENCY 10/03/17 09:02 Active ABG Stat LAB 10/03/17 09:01 Completed B-TYPE NATRIURETIC PEPTIDE Stat LAB 10/03/17 09:10 Completed CBC W/ AUTO DIFF Stat LAB 10/03/17 09:10 Completed COMPREHENSIVE METABOLIC PANEL Stat LAB 10/03/17 09:10 Completed CREATINE KINASE Stat LAB 10/03/17 09:10 Completed TROPONIN I Stat LAB 10/03/17 09:10 Completed 0.9 % Sodium Chloride [Saline Flush] MEDS 10/03/17 09:02 Active 1 syr IVF PRN PRN Ceftriaxone Sodium [Rocephin] MEDS 10/03/17 09:11 Discontinued 1 gm .ROUTE .STK-MED ONE Ceftriaxone Sodium [Rocephin] 1 gm MEDS 10/03/17 09:03 Discontinued 0.9 % Sodium Chloride [Sodium Chloride] 50 ml IV ONCE Ipratropium/Albuterol Neb [Duoneb] MEDS 10/03/17 09:03 Discontinued 1 vial NEB ONCE STA Levalbuterol HCl [Xopenex 1.25 mg] MEDS 10/03/17 09:03 Discontinued 1 vial NEB ONCE STA Methylprednisolone Sod Succ/Pf [Solu-Medrol 125 mg] MEDS 10/03/17 09:02 Discontinued 125 mg IVP ONCE STA CXR [CHEST, 2 VIEWS PA & LAT] Stat RADS 10/03/17 09:02 Taken Medications Generic Name Dose Route Start Last Admin Trade Name Freq PRN Reason Stop Dose Admin Sodium Chloride 1 syr 10/03/17 09:02 10/03/17 09:18 Saline Flush IVF 1 syr PRN PRN Administration To flush IV Discontinued Medications Generic Name Dose Route Start Last Admin Trade Name Freq PRN Reason Stop Dose Admin Albuterol/Ipratropium 1 vial 10/03/17 09:03 10/03/17 09:19 Duoneb NEB 10/03/17 09:04 1 vial ONCE STA Administration Ceftriaxone Sodium 1 gm/ 50 mls @ 75 mls/hr 10/03/17 09:03 10/03/17 09:21 Sodium Chloride IV 10/03/17 09:42 75 mls/hr ONCE STA Administration Levalbuterol HCl 1 vial 10/03/17 09:03 10/03/17 09:29 Xopenex 1.25 Mg NEB 10/03/17 09:04 1 vial ONCE STA Administration Methylprednisolone Sodium Succinate 125 mg 10/03/17 09:02 10/03/17 09:16 Solu-Medrol 125 Mg IVP 10/03/17 09:03 125 mg ONCE STA Administration Vital Signs: Temp Pulse Resp BP Pulse Ox 10/03/17 08:59 98.5 F 90 22 168/75 H 85 L Departure - Departure Time of Disposition: 10:16 Disposition: HOME SELF-CARE Discharge Problem: Tobacco use Asthmatic bronchitis Qualifiers: Asthma severity: mild Asthma persistence: intermittent Asthma complication type : with acute exacerbation Qualified Code(s): J45.21 - Mild intermittent asthma with (acute) exacerbation Instructions: Asthma (ED) Condition: Good Pt referred to PMD for follow-up: No IPMP verified?: No Additional Instructions: prednisone 40mg x 3 days then 30mg x 3 days then 20mg x 3 days---keflex 500mg bid x 7 days---duoneb qid ---call me if any problems Allergies/Adverse Reactions: Allergies No Known Allergies Allergy (Verified 10/03/17 09:04) Home Medications: Ambulatory Orders Aspirin [Aspirin EC] 81 mg PO DAILYWM 07/02/15 Prasugrel HCl [Effient] 5 mg PO DAILY 07/02/15 Pravastatin Sodium [Pravachol] 40 mg PO DAILY 07/02/15 Metoprolol Succinate [Toprol Xl] 25 mg PO DAILY 07/24/16 Albuterol Sulfate [Proair Hfa] 2 puff IH Q4H PRN 10/13/16 Disposition Discussed With: Patient, Family
--- NOTE | 2017-10-03 10:29 | DI ---
EXAM: PA and lateral views of the chest HISTORY: Cough COMPARISON: CT chest 10/14/2016 and Chest x-ray 07/03/2015 FINDINGS: The cardiomediastinal silhouette is unchanged. The lungs are hyperinflated. There is no pneumothorax or pleural effusion. There is no consolidation, nodule or mass. The osseous structures demonstrate degenerative disease of the spine. IMPRESSION: 1. Hyperinflation suggestive of chronic obstructive pulmonary disease with no acute consolidation. 2. No significant change.
== END 2017-10-03 10:25 | disposition home or self-care (01) ==
LOC: ED 08:58
DX: J45.21 Mild intermittent asthma with (acute) exacerbation (principal); F17.210 Nicotine dependence, cigarettes, uncomplicated; R06.02 Shortness of breath; I25.10 Atherosclerotic heart disease of native coronary artery without angina pectoris; I25.2 Old myocardial infarction; I10 Essential (primary) hypertension
CPT/HCPCS: 36415; 80053; 82550; 82803; 83880; 84484; 85025; 93005; 93010; 94640; 96365; 96375; 99283